=== PATIENT | male | born 1940 | race Caucasian/White ===

== ENCOUNTER 2016-12-17 08:37 | Observation (INO) | payer BC, MEDICARE ==
[~2016-12-17] VITALS: Ht 170.2 cm; Wt 64.2 kg
[~2016-12-17 08:37] MED LIST: 00186-0370-20 IH; ALBUTEROL SULFAT3 M3 IH; ALLEGRA ALLERGY60 MG PO; ALLEGRA60 MG PO; ALUMINUM & MAG355 ML PO; ANUSOL-HC2.5% RC; ASPIR-LOW81 MG PO; ASPIRIN 81M81 MG/TA2 PO; ATIVAN 0.50.5 MG/TAB PO; ATORVASTATIN; ATROVENT I0.2 MG/1 M IH; BLOOD PRESSURE MED; CARDIZEM CD 18180 MG PO; COLACE 100100 MG/CAP PO; CORDARONE200 MG/TAB PO; COUMADIN 2MG2 MG/TAB PO; DALIRESP500 MCG PO; DEBROX OT; DIAMOX 250MG250 MG PO; ELIQUIS 5MG PO; FLOMAX; FLOMAX 0.40.4 MG/CAP PO; GENTLE LAXATIVE10 MG RC; LASIX 40MG TABL40 MG PO; LEVAQUIN 5500 MG/TA1 PO; LIPITOR 10MG10 MG PO; LORTAB 5/500 501 TAB PO; MILK OF MA400 MG/52; MIRALAX PA17 GM/Dose PO; NORCO 325 MG-51 TAB PO; PACERONE400 MG PO; PREDNISONE20 MG PO; PRINIVIL10 MG PO; PRINZIDE 12.5 M1 TAB PO; PROTONIX 40MG T40 MG PO; PYRIDIUM 100MG100 MG PO; Pyridium PO; RT ADVAIR HFA 2312 G IH; RT SPIRIVA18 MCG IH; SENNA8.6 MG PO; THEO-DUR 2200 MG/TAB PO; TYLENOL 325MG325 MG PO; TYLENOL SU650 MG/SUP RC; XOPENEX 1.1.25 MG/3 IH; rhinocort NS
[2016-12-17 09:17] LABS: BASO % 0.3 % (0.0-2.0); EOS # 0.1 (0.0-0.7); EOS % 1.9 % (0-4.0); GRAN # 3.7 (1.4-6.5); GRAN % 54.4 % (42.2-75.2); HEMATOCRIT 43.2 % (42.0-52.0); HEMOGLOBIN 14.7 g/dl (13.5-18.0); LYMPH # 2.5 (1.2-3.4); MEAN CELL VOLUME 93 fl (80.0-100.0); MEAN CORPUSCULAR HEMOGLOBIN 32 pg (27.0-31.0); MEAN CORPUSCULAR HGB CONC 34 g/dl (33.0-37.0); MEAN PLATELET VOLUME 10.6 fl (7.4-10.4); MONO # 0.4 (0.1-0.6); MONO % 6.3 % (1.7-9.3); PLATELET COUNT 144 K/mm3 (130-400); RED BLOOD COUNT 4.67 M/mm3 (4.20-5.60); REDCELL DISTRIBUTION WIDTH-CV 14.1 % (11.5-14.5); WHITE BLOOD COUNT 6.8 K/mm3 (4.8-10.8)
[2016-12-17 09:54] LABS: ADJUSTED CALCIUM 9.7 mg/dL (8.4-10.2); ALBUMIN 3.9 gm/dL (3.5-5.0); BILIRUBIN,TOTAL 1.7 mg/dL (0.0-1.0); C-REACTIVE PROTEIN 0.6 mg/dL (0.0-0.9); CALCIUM 9.6 mg/dL (8.4-10.2); CREATININE, serum 0.88 mg/dL (0.66-1.25); POTASSIUM 3.8 mmol/L (3.4-5.0); TOTAL PROTEIN 7.6 gm/dL (6.4-8.2)
[2016-12-17 11:05] VITALS: BP 131/66; PULSE 48; TEMP 99
[2016-12-17 16:00] VITALS: BP 123/60; PULSE 60; TEMP 98.2
[2016-12-17 20:15] VITALS: BP 118/55; PULSE 121; TEMP 98.9
[2016-12-17 23:42] VITALS: BP 125/65; PULSE 109; TEMP 98.8
[2016-12-18 04:23] VITALS: BP 100/50; PULSE 113; TEMP 98.4
[2016-12-18 07:40] LABS: HEMATOCRIT 38.4 % (42.0-52.0); MEAN CELL VOLUME 93 fl (80.0-100.0); MEAN CORPUSCULAR HEMOGLOBIN 31 pg (27.0-31.0); MEAN CORPUSCULAR HGB CONC 33 g/dl (33.0-37.0); MEAN PLATELET VOLUME 11.2 fl (7.4-10.4); PLATELET COUNT 159 K/mm3 (130-400); RED BLOOD COUNT 4.11 M/mm3 (4.20-5.60); REDCELL DISTRIBUTION WIDTH-CV 14.1 % (11.5-14.5); WHITE BLOOD COUNT 10.8 K/mm3 (4.8-10.8)
[2016-12-18 07:51] VITALS: BP 122/60; PULSE 121; TEMP 97.6
[2016-12-18 08:08] LABS: CALCIUM 9.2 mg/dL (8.4-10.2); CREATININE, serum 0.84 mg/dL (0.66-1.25); POTASSIUM 3.8 mmol/L (3.4-5.0)
[2016-12-18 08:21] LABS: HEMOGLOBIN 12.7 g/dl (13.5-18.0)
[2016-12-18 08:37] LABS: THYROID STIMULATING HORMONE 0.492 uIU/mL (0.465-4.680)
[2016-12-18 12:06] VITALS: BP 118/57; PULSE 107; TEMP 98.2
[2016-12-18 16:20] VITALS: BP 118/55; PULSE 115; TEMP 97.9
[2016-12-18 19:38] VITALS: BP 128/56; PULSE 111; TEMP 98.3
[2016-12-18 23:40] VITALS: BP 142/62; PULSE 83; TEMP 97.4
[2016-12-19 03:42] VITALS: BP 132/58; PULSE 80; TEMP 98.5
[2016-12-19 07:48] LABS: MEAN CELL VOLUME 96 fl (80.0-100.0); MEAN CORPUSCULAR HGB CONC 33 g/dl (33.0-37.0); MEAN PLATELET VOLUME 10.8 fl (7.4-10.4); PLATELET COUNT 144 K/mm3 (130-400); RED BLOOD COUNT 3.81 M/mm3 (4.20-5.60); REDCELL DISTRIBUTION WIDTH-CV 14.7 % (11.5-14.5); WHITE BLOOD COUNT 9.1 K/mm3 (4.8-10.8)
[2016-12-19 07:52] LABS: HEMATOCRIT 36.5 % (42.0-52.0); HEMOGLOBIN 11.9 g/dl (13.5-18.0); MEAN CORPUSCULAR HEMOGLOBIN 31 pg (27.0-31.0)
[2016-12-19 08:00] VITALS: BP 134/63; PULSE 75; TEMP 97.4
[2016-12-19 08:12] LABS: CALCIUM 8.7 mg/dL (8.4-10.2); CREATININE, serum 0.9 mg/dL (0.66-1.25); POTASSIUM 3.4 mmol/L (3.4-5.0)
[2016-12-19] MEDS ORDERED: PREDNISONE20 MG PO (10:00)
[2016-12-19] MEDS ORDERED: ZITHROMAX TRI-500 MG PO (10:00)
== END 2016-12-19 11:14 | disposition home or self-care (01) ==
LOC: COL.ER 08:37 → MEDICAL 10:06
PROVIDERS: Family Medicine; Internal Medicine
DX: J44.1 Chronic obstructive pulmonary disease with (acute) exacerbation (principal); R07.9 Chest pain, unspecified; D64.9 Anemia, unspecified; I10 Essential (primary) hypertension; R68.89 Other general symptoms and signs; E78.5 Hyperlipidemia, unspecified; Z87.891 Personal history of nicotine dependence
CPT/HCPCS: G0378; J1100; J1650; J2930; J7030; J7512

== ENCOUNTER 2017-07-16 21:34 | Inpatient (IN) | payer BC, MEDICARE ==
[~2017-07-16] VITALS: Ht 170.2 cm; Wt 61.4 kg
[~2017-07-16 21:34] MED LIST changes: +ZITHROMAX TRI-500 MG PO
[2017-07-16 22:16] LABS: BASO % 0.4 % (0.0-2.0); EOS # 0.1 (0.0-0.7); EOS % 1.5 % (0-4.0); GRAN # 4.9 (1.4-6.5); GRAN % 59.2 % (42.2-75.2); HEMATOCRIT 43.9 % (42.0-52.0); HEMOGLOBIN 14.9 g/dl (13.5-18.0); LYMPH # 2.7 (1.2-3.4); LYMPH % 32.2 % (20.0-51.0); MEAN CELL VOLUME 94 fl (80.0-100.0); MEAN CORPUSCULAR HEMOGLOBIN 32 pg (27.0-31.0); MEAN CORPUSCULAR HGB CONC 34 g/dl (33.0-37.0); MEAN PLATELET VOLUME 10.8 fl (7.4-10.4); MONO # 0.5 (0.1-0.6); MONO % 6.5 % (1.7-9.3); PLATELET COUNT 155 K/mm3 (130-400); RED BLOOD COUNT 4.68 M/mm3 (4.20-5.60); REDCELL DISTRIBUTION WIDTH-CV 14.2 % (11.5-14.5); WHITE BLOOD COUNT 8.3 K/mm3 (4.8-10.8)
[2017-07-16 22:23] LABS: INR 1.1 (0.8-3.0); PROTHROMBIN TIME 12.6 SECONDS (9.7-12.8)
[2017-07-16 22:28] LABS: ADJUSTED CALCIUM 9.2 mg/dL (8.4-10.2); ALBUMIN 4.1 gm/dL (3.5-5.0); BILIRUBIN,TOTAL 2.3 mg/dL (0.0-1.0); CALCIUM 9.3 mg/dL (8.4-10.2); CREATININE, serum 0.81 mg/dL (0.66-1.25); POTASSIUM 3.9 mmol/L (3.4-5.0); TOTAL PROTEIN 7.3 gm/dL (6.4-8.2)
[2017-07-16 22:39] LABS: TROPONIN-I 0.042 ng/mL (0.000-0.034)
[2017-07-17 02:51] VITALS: BP 136/71; PULSE 70; TEMP 98.6
[2017-07-17] MEDS ORDERED: FLONASE NASAL S16 GM NS (03:44)
[2017-07-17 08:03] VITALS: BP 130/62; PULSE 72; TEMP 97.5
[2017-07-17 11:50] VITALS: BP 113/65; PULSE 78; TEMP 98.3
[2017-07-17 16:38] VITALS: BP 142/62; PULSE 84; TEMP 98.1
[2017-07-17 19:50] VITALS: BP 113/66; PULSE 73; TEMP 98.5
[2017-07-17 23:46] VITALS: BP 128/74; PULSE 74; TEMP 98
[2017-07-18] VITALS (9 sets, daily range): BP systolic 90–144; BP diastolic 52–83; PULSE 70–121; TEMP 97.7–98.1
[2017-07-19] VITALS (652 sets, daily range): BP systolic 101–136; BP diastolic 58–91; PULSE 69–86; TEMP 97.4–98.2; O2SAT 91–100
[2017-07-19 07:41] LABS: HEMATOCRIT 40.3 % (42.0-52.0); HEMOGLOBIN 13.7 g/dl (13.5-18.0); MEAN CELL VOLUME 95 fl (80.0-100.0); MEAN CORPUSCULAR HEMOGLOBIN 32 pg (27.0-31.0); MEAN CORPUSCULAR HGB CONC 34 g/dl (33.0-37.0); PLATELET COUNT 138 K/mm3 (130-400); RED BLOOD COUNT 4.26 M/mm3 (4.20-5.60); REDCELL DISTRIBUTION WIDTH-CV 14.3 % (11.5-14.5); WHITE BLOOD COUNT 6.7 K/mm3 (4.8-10.8)
[2017-07-19 07:59] LABS: CREATININE, serum 0.84 mg/dL (0.66-1.25); POTASSIUM 4.1 mmol/L (3.4-5.0)
[2017-07-19 08:02] LABS: INR 1.1 (0.8-3.0); PROTHROMBIN TIME 12.2 SECONDS (9.7-12.8)
[2017-07-19 08:05] LABS: PARTIAL THROMBOPLASTIN TIME 31.2 SECONDS (26.0-37.0)
[2017-07-20] VITALS (598 sets, daily range): BP systolic 95–124; BP diastolic 53–71; PULSE 69–75; TEMP 16; O2SAT 92–100
[2017-07-20 04:18] LABS: HEMATOCRIT 39.4 % (42.0-52.0); HEMOGLOBIN 13.2 g/dl (13.5-18.0); MEAN CELL VOLUME 95 fl (80.0-100.0); MEAN CORPUSCULAR HEMOGLOBIN 32 pg (27.0-31.0); MEAN CORPUSCULAR HGB CONC 34 g/dl (33.0-37.0); MEAN PLATELET VOLUME 11.1 fl (7.4-10.4); PLATELET COUNT 140 K/mm3 (130-400); RED BLOOD COUNT 4.17 M/mm3 (4.20-5.60); REDCELL DISTRIBUTION WIDTH-CV 14.3 % (11.5-14.5); WHITE BLOOD COUNT 9.7 K/mm3 (4.8-10.8)
[2017-07-20 04:31] LABS: CALCIUM 8.8 mg/dL (8.4-10.2); CREATININE, serum 0.85 mg/dL (0.66-1.25)
[2017-07-20] MEDS ORDERED: COLACE 100100 MG/CAP PO (15:00)
[2017-07-21 03:03] VITALS: BP 99/51; PULSE 73; TEMP 99
[2017-07-21] MEDS ORDERED: BRILINTA90 MG PO (08:06)
[2017-07-21] MEDS ORDERED: LIPITOR 40MG TA40 MG PO (08:06)
[2017-07-21] MEDS ORDERED: ASPIRIN E.C. 8181 MG PO (08:08)
[2017-07-21] MEDS ORDERED: NITROSTAT0.4 MG/TAB SL (08:08)
[2017-07-21] MEDS ORDERED: BETAPACE 80MG80 MG PO (08:09)
[2017-07-21] MEDS ORDERED: ZESTRIL 10MG10 MG PO (08:09)
[2017-07-21 08:19] VITALS: BP 121/63; PULSE 71; TEMP 98
[2017-07-21 11:32] VITALS: BP 109/53; PULSE 69; TEMP 98.9
== END 2017-07-21 13:45 | disposition home or self-care (01) | DRG 247 ==
LOC: COL.ER 21:34 → MEDICAL 22:53 → ICU 07-19 09:53 → MEDICAL 07-20 13:16
PROVIDERS: Emergency Medicine; Internal Medicine Cardiovascular Disease
PROC: B2111ZZ Fluoroscopy of Multiple Coronary Arteries using Low Osmolar Contrast (ICD-10-PCS; principal; 2017-07-19)
PROC: 027034Z Dilation of Coronary Artery, One Artery with Drug-eluting Intraluminal Device, Percutaneous Approach (ICD-10-PCS; 2017-07-19)
DX: I21.4 Non-ST elevation (NSTEMI) myocardial infarction (principal); J96.11 Chronic respiratory failure with hypoxia; I50.42 Chronic combined systolic (congestive) and diastolic (congestive) heart failure; L76.32 Postprocedural hematoma of skin and subcutaneous tissue following other procedure; I42.9 Cardiomyopathy, unspecified; I11.0 Hypertensive heart disease with heart failure; I25.10 Atherosclerotic heart disease of native coronary artery without angina pectoris; I48.0 Paroxysmal atrial fibrillation; J44.9 Chronic obstructive pulmonary disease, unspecified; Z79.01 Long term (current) use of anticoagulants; Z95.0 Presence of cardiac pacemaker; Z87.891 Personal history of nicotine dependence
CPT/HCPCS: 99222-AI; 99232-AI; 99233-AI; 99239; A9502; C1725; C1760; C1769; C1874; C1887; C1894; C9600; J0583; J2250; J2785; J3010; Q9967

== ENCOUNTER 2017-10-21 11:50 | Outpatient (RCR) | payer BC ==
[~2017-10-21 11:50] MED LIST changes: +ASPIRIN E.C. 8181 MG PO; +BETAPACE 80MG80 MG PO; +BRILINTA90 MG PO; +FLONASE NASAL S16 GM NS; +LIPITOR 40MG TA40 MG PO; +NITROSTAT0.4 MG/TAB SL; +ZESTRIL 10MG10 MG PO
== END 2017-11-15 | disposition home or self-care (01) ==
LOC: COL.CR
DX: Z48.812 Encounter for surgical aftercare following surgery on the circulatory system (principal); Z95.5 Presence of coronary angioplasty implant and graft; I42.9 Cardiomyopathy, unspecified; I50.9 Heart failure, unspecified; I25.10 Atherosclerotic heart disease of native coronary artery without angina pectoris

== ENCOUNTER → 2018-01-05 | Outpatient (CLI) | payer BC | LOC: COL.RAD 11:37 | DX: T82.9XXA Unspecified complication of cardiac and vascular prosthetic device, implant and graft, initial encounter (principal); Z95.9 Presence of cardiac and vascular implant and graft, unspecified ==

== ENCOUNTER 2018-03-22 14:24 | Emergency (ER) | payer BC ==
[~2018-03-22] VITALS: Ht 170.2 cm; Wt 56.8 kg
[2018-03-22 14:37] VITALS: TEMP 97.4
[2018-03-22 15:37] LABS: BASO % 0.5 % (0.0-2.0); EOS # 0.1 (0.0-0.7); EOS % 1.7 % (0-4.0); GRAN # 5.2 (1.4-6.5); GRAN % 66.7 % (42.2-75.2); HEMOGLOBIN 13.3 g/dl (13.5-18.0); LYMPH # 1.7 (1.2-3.4); LYMPH % 22.5 % (20.0-51.0); MEAN CELL VOLUME 96 fl (80.0-100.0); MEAN CORPUSCULAR HEMOGLOBIN 32 pg (27.0-31.0); MEAN CORPUSCULAR HGB CONC 33 g/dl (33.0-37.0); MEAN PLATELET VOLUME 10.6 fl (7.4-10.4); MONO # 0.6 (0.1-0.6); MONO % 8.3 % (1.7-9.3); PLATELET COUNT 161 K/mm3 (130-400); RED BLOOD COUNT 4.16 M/mm3 (4.20-5.60); REDCELL DISTRIBUTION WIDTH-CV 14.8 % (11.5-14.5)
[2018-03-22 15:41] LABS: INR 1.5 (0.8-3.0); PROTHROMBIN TIME 17.4 SECONDS (9.7-12.8)
[2018-03-22 15:44] LABS: PARTIAL THROMBOPLASTIN TIME 43.3 SECONDS (26.0-37.0)
[2018-03-22 17:04] VITALS: BP 150/69; PULSE 76
== END 2018-03-22 17:05 | disposition home or self-care (01) ==
LOC: COL.ER 14:24
PROVIDERS: Physician Assistant
DX: R04.0 Epistaxis (principal); J44.9 Chronic obstructive pulmonary disease, unspecified; I10 Essential (primary) hypertension; I48.91 Unspecified atrial fibrillation; I25.10 Atherosclerotic heart disease of native coronary artery without angina pectoris; Z87.442 Personal history of urinary calculi; Z79.82 Long term (current) use of aspirin; Z79.01 Long term (current) use of anticoagulants; Z87.891 Personal history of nicotine dependence

== ENCOUNTER → 2018-11-14 | Outpatient (CLI) | payer BC | LOC: ZCOL.LAB 13:52 | DX: J32.9 Chronic sinusitis, unspecified (principal) ==

== ENCOUNTER 2018-11-16 08:49 | Emergency (ER) | payer BC ==
[~2018-11-16] VITALS: Ht 170.2 cm; Wt 56.4 kg
[2018-11-16 08:56] VITALS: TEMP 97.5
[2018-11-16 09:24] LABS: BASO % 0.2 % (0.0-2.0); GRAN % 78.5 % (42.2-75.2); HEMATOCRIT 44.5 % (42.0-52.0); HEMOGLOBIN 14.5 g/dl (13.5-18.0); LYMPH # 1.8 (1.2-3.4); LYMPH % 14.4 % (20.0-51.0); MEAN CELL VOLUME 98 fl (80.0-100.0); MEAN CORPUSCULAR HEMOGLOBIN 32 pg (27.0-31.0); MEAN CORPUSCULAR HGB CONC 33 g/dl (33.0-37.0); MEAN PLATELET VOLUME 10.4 fl (7.4-10.4); MONO # 0.8 (0.1-0.6); MONO % 6.4 % (1.7-9.3); PLATELET COUNT 259 K/mm3 (130-400); RED BLOOD COUNT 4.55 M/mm3 (4.20-5.60)
[2018-11-16 09:31] LABS: PARTIAL THROMBOPLASTIN TIME 33.1 SECONDS (26.0-37.0)
[2018-11-16] MEDS ORDERED: AMOXICILLIN 8751 TAB PO (09:31)
[2018-11-16] MEDS ORDERED: PREDNISONE10 MG PO (09:31)
[2018-11-16] MEDS ORDERED: TOPROL XL 50MG50 MG PO (09:31)
[2018-11-16 09:35] LABS: INR 1.4 (0.8-3.0); PROTHROMBIN TIME 16.1 SECONDS (9.7-12.8)
[2018-11-16 09:36] LABS: ALBUMIN 3.9 gm/dL (3.5-5.0); BILIRUBIN,TOTAL 1.4 mg/dL (0.0-1.0); CALCIUM 9.6 mg/dL (8.4-10.2); CREATININE, serum 0.95 mg/dL (0.66-1.25); POTASSIUM 3.8 mmol/L (3.4-5.0); TOTAL PROTEIN 7.6 gm/dL (6.4-8.2)
[2018-11-16 09:47] LABS: TROPONIN-I 0.018 ng/mL (0.000-0.034)
[2018-11-16 14:56] VITALS: BP 127/73; PULSE 104
== END 2018-11-16 14:57 | disposition short-term general hospital (02) ==
LOC: COL.ER 08:49
PROVIDERS: Emergency Medicine
DX: J18.1 Lobar pneumonia, unspecified organism (principal); R04.2 Hemoptysis; J44.1 Chronic obstructive pulmonary disease with (acute) exacerbation; I48.91 Unspecified atrial fibrillation; I25.10 Atherosclerotic heart disease of native coronary artery without angina pectoris; Z95.0 Presence of cardiac pacemaker; Z79.01 Long term (current) use of anticoagulants; Z79.82 Long term (current) use of aspirin
CPT/HCPCS: J0696; J2930; J7030; J7040; Q9967

== ENCOUNTER 2018-12-29 12:36 | Emergency (ER) | payer MEDICARE ==
[~2018-12-29] VITALS: Ht 167.6 cm; Wt 57.7 kg
[~2018-12-29 12:36] MED LIST changes: +AMOXICILLIN 8751 TAB PO; +PREDNISONE10 MG PO; +TOPROL XL 50MG50 MG PO
[2018-12-29 13:10] VITALS: TEMP 99.1
[2018-12-29 14:58] VITALS: BP 168/84; PULSE 77
== END 2018-12-29 14:58 | disposition home or self-care (01) ==
LOC: COL.ER 12:36
DX: R04.0 Epistaxis (principal); I10 Essential (primary) hypertension; Z79.82 Long term (current) use of aspirin

== ENCOUNTER 2020-05-05 16:22 | Inpatient (IN) | payer MEDICARE ==
[~2020-05-05] VITALS: Ht 167.6 cm; Wt 60.4 kg
[2020-05-07 08:51] VITALS: BP 166/78; PULSE 74; TEMP 98
[2020-05-07] MEDS ORDERED: RT SPIRIVA18 MCG IH (09:21)
[2020-05-07] MEDS ORDERED: PROTONIX 40MG T40 MG PO (09:22)
[2020-05-07] MEDS ORDERED: TYLENOL 325MG325 MG PO (09:23)
[2020-05-07] MEDS ORDERED: MUCOMYST 20200 MG/ML IH (09:24)
[2020-05-07] MEDS ORDERED: IPRATROPIUM BROM3 M1 IH (09:26)
[2020-05-07] MEDS ORDERED: ANUSOL HC CREAM30 GM TP (09:27)
[2020-05-07] MEDS ORDERED: PRINIVIL20 MG PO (09:28)
[2020-05-07] MEDS ORDERED: SALINE 45 ML45 ML (09:30)
[2020-05-07] MEDS ORDERED: FLONASEALLERGY NS (09:31)
[2020-05-07 10:16] LABS: BASO % 0.4 % (0.0-2.0); EOS # 0.1 (0.0-0.7); EOS % 1.5 % (0-4.0); GRAN # 4.9 (1.4-6.5); GRAN % 71.3 % (42.2-75.2); HEMATOCRIT 42.2 % (42.0-52.0); HEMOGLOBIN 13.5 g/dl (13.5-18.0); INR 1.4 (0.8-3.0); LYMPH # 1.3 (1.2-3.4); LYMPH % 18.6 % (20.0-51.0); MEAN CELL VOLUME 99 fl (80.0-100.0); MEAN CORPUSCULAR HEMOGLOBIN 32 pg (27.0-31.0); MEAN CORPUSCULAR HGB CONC 32 g/dl (33.0-37.0); MEAN PLATELET VOLUME 11.2 fl (7.4-10.4); MONO # 0.5 (0.1-0.6); MONO % 7.9 % (1.7-9.3); PLATELET COUNT 134 K/mm3 (130-400); PROTHROMBIN TIME 16.2 SECONDS (9.7-12.8); RED BLOOD COUNT 4.27 M/mm3 (4.20-5.60); REDCELL DISTRIBUTION WIDTH-CV 14.5 % (11.5-14.5)
[2020-05-07 10:44] LABS: ALBUMIN 4.1 gm/dL (3.5-5.0); BILIRUBIN,TOTAL 1.8 mg/dL (0.0-1.0); CALCIUM 9.2 mg/dL (8.4-10.2); CREATININE, serum 0.91 (0.66-1.25); MAGNESIUM 2.1 mg/dL (1.6-2.3); POTASSIUM 4.1 mmol/L (3.4-5.0); TOTAL PROTEIN 7.6 gm/dL (6.4-8.2)
--- NOTE | 2020-05-07 10:50 | NUR ---
Admission assessment complete. Heart rhythm irregular. Wheezes heard over all lung swan with expiration. No other remarkable findings noted. Med rec completed and health history obtained. IV to left forearm placed, flushes easily. Pt denies pain or concerns at this time. Will continue to monitor. Call light within reach.
--- NOTE | 2020-05-07 11:37 | NUR ---
SW met with patient to complete intake. Patient states that he lives in [place] with his Ange [phone]. He states that he does not utilize any DME, and that he does not need any assistance with ADL's. He provides that his PCP is Dr. Ari Cruz. Patient states that he utilizes [facility] to obtain his medications, and that he is able to afford his medications. Patient states that he has appointed his and son to be his DPOA-HC, but is unsure of where the documentation is located. SW asked if the documentation could be at his PCP office, and he stated it could be. SW called PCP office and tour sales representative stated that there was no DPOA-HC listed. SW asked patient about documentation and he stated that he was sure that the documentation was at the PCP office. Next of kin is listed as his Ange [phone]. Patient plans to go back home with his upon discharge, and has no questions or concerns in regards to discharge. SW will continue to follow.
[2020-05-07 12:26] VITALS: BP 142/68; PULSE 70; TEMP 98.8
--- NOTE | 2020-05-07 14:49 | NUR ---
Pt not currently on quality assurance monitor chassis due to no available telemetry monitors at this time.
[2020-05-07 16:18] VITALS: BP 121/63; PULSE 72; TEMP 98.2
--- NOTE | 2020-05-07 18:05 | NUR ---
Pt has had an uneventful day. Moves independently and denies pain or concerns. Pt was seen by today and started on Sotalol. Remains off of telemetry due to unavailability of aircraft engine mechanic supervisor.
[2020-05-07 19:00] VITALS: BP 132/65; PULSE 68; TEMP 100.4
[2020-05-07 22:59] VITALS: BP 100/50; PULSE 74; TEMP 98.5
[2020-05-08 03:10] VITALS: BP 103/61; PULSE 69; TEMP 98.2
[2020-05-08] MEDS ORDERED: ATROVENT NASAL15 ML NS (06:12)
[2020-05-08 06:54] LABS: BASO % 0.4 % (0.0-2.0); EOS # 0.2 (0.0-0.7); EOS % 4.1 % (0-4.0); GRAN # 3.1 (1.4-6.5); GRAN % 58.5 % (42.2-75.2); HEMOGLOBIN 12.4 g/dl (13.5-18.0); LYMPH # 1.4 (1.2-3.4); LYMPH % 26.6 % (20.0-51.0); MEAN CELL VOLUME 99 fl (80.0-100.0); MEAN CORPUSCULAR HEMOGLOBIN 32 pg (27.0-31.0); MEAN CORPUSCULAR HGB CONC 32 g/dl (33.0-37.0); MEAN PLATELET VOLUME 11.3 fl (7.4-10.4); MONO # 0.6 (0.1-0.6); MONO % 10.2 % (1.7-9.3); PLATELET COUNT 122 K/mm3 (130-400); RED BLOOD COUNT 3.94 M/mm3 (4.20-5.60); REDCELL DISTRIBUTION WIDTH-CV 14.4 % (11.5-14.5)
[2020-05-08 07:03] LABS: CALCIUM 8.7 mg/dL (8.4-10.2); CREATININE, serum 0.98 (0.66-1.25); MAGNESIUM 2.1 mg/dL (1.6-2.3); POTASSIUM 4.4 mmol/L (3.4-5.0)
[2020-05-08 07:31] LABS: THYROID STIMULATING HORMONE 2.71 uIU/mL (0.465-4.680)
[2020-05-08 07:45] VITALS: BP 143/74; PULSE 71; TEMP 98.3
--- NOTE | 2020-05-08 09:36 | NUR ---
Pt resting in bed upon entering room. Assessment completed and documented. No significant findings noted. IV to L wrist intact and flushes easily. Pt denies pain and reports no concerns at this time. Will continue to monitor. Call light within reach.
[2020-05-08 12:38] VITALS: BP 154/71; PULSE 73; TEMP 98.5
[2020-05-08 16:05] VITALS: BP 128/61; PULSE 72; TEMP 98.8
[2020-05-08 20:03] VITALS: BP 152/64; PULSE 68; TEMP 98.3
--- NOTE | 2020-05-08 21:20 | NUR ---
Resting in bed. Assessment complete. WNL. INT to left wrist flushed without complications. Denies pain. Denies needs at this time. Call light in reach.
--- NOTE | 2020-05-09 00:43 | NUR ---
Resting in bed. Denies needs. Call light in reach.
[2020-05-09 01:41] VITALS: BP 103/69; PULSE 75; TEMP 97.6
--- NOTE | 2020-05-09 02:20 | NUR ---
Resting in bed asleep. Call light in reach.
[2020-05-09 05:03] VITALS: BP 101/58; PULSE 70; TEMP 98.3
--- NOTE | 2020-05-09 05:52 | NUR ---
Patient had uneventful night. Resting in bed this AM. Call light in reach.
[2020-05-09 06:58] LABS: BASO % 0.5 % (0.0-2.0); EOS # 0.2 (0.0-0.7); EOS % 3.3 % (0-4.0); GRAN # 3.5 (1.4-6.5); GRAN % 60.9 % (42.2-75.2); HEMATOCRIT 39.8 % (42.0-52.0); HEMOGLOBIN 12.9 g/dl (13.5-18.0); LYMPH # 1.5 (1.2-3.4); LYMPH % 25.3 % (20.0-51.0); MEAN CELL VOLUME 98 fl (80.0-100.0); MEAN CORPUSCULAR HEMOGLOBIN 32 pg (27.0-31.0); MEAN CORPUSCULAR HGB CONC 32 g/dl (33.0-37.0); MEAN PLATELET VOLUME 11.1 fl (7.4-10.4); MONO # 0.6 (0.1-0.6); MONO % 9.7 % (1.7-9.3); PLATELET COUNT 131 K/mm3 (130-400); RED BLOOD COUNT 4.07 M/mm3 (4.20-5.60); REDCELL DISTRIBUTION WIDTH-CV 14.1 % (11.5-14.5)
--- NOTE | 2020-05-09 07:09 | NUR ---
Report given to ROZINA Miller
[2020-05-09 07:13] LABS: CALCIUM 9.1 mg/dL (8.4-10.2); CREATININE, serum 1.02 (0.66-1.25); POTASSIUM 4.2 mmol/L (3.4-5.0)
[2020-05-09 08:05] VITALS: BP 145/72; PULSE 70; TEMP 98.3
[2020-05-09 09:12] VITALS: BP 122/61; PULSE 71; TEMP 97.8
--- NOTE | 2020-05-09 09:28 | NUR ---
Patient is alert and oriented. independent in his room. QTc this am was 471. denies any pain. SBP 140's, HR >60.
[2020-05-09] MEDS ORDERED: BETAPACE 80MG80 MG PO (10:46)
--- NOTE | 2020-05-09 12:06 | NUR ---
leftforearm IV discontinued.
[2020-05-09 12:23] VITALS: BP 141/66; PULSE 77; TEMP 97.5
--- NOTE | 2020-05-09 13:51 | NUR ---
Patient discharged with New sotalol order. drove patient home. Patient recieved his belonging that was locked up. provided information on future appointment on the 05/14/20 with fountain supervisor.
== END 2020-05-09 13:30 | disposition home or self-care (01) | DRG 310 ==
LOC: MEDICAL 05-07 08:07
PROVIDERS: ADMIT Internal Medicine Cardiovascular Disease
DX: I48.0 Paroxysmal atrial fibrillation (principal); I10 Essential (primary) hypertension; I25.10 Atherosclerotic heart disease of native coronary artery without angina pectoris; I42.9 Cardiomyopathy, unspecified; E78.5 Hyperlipidemia, unspecified; J44.9 Chronic obstructive pulmonary disease, unspecified; Z95.0 Presence of cardiac pacemaker; Z99.81 Dependence on supplemental oxygen